=== PATIENT | male | born 1995 | race African-American/Black ===

== ENCOUNTER 2023-01-24 09:36 | Outpatient (CLI) | payer OTHER ==
--- NOTE | 2023-01-30 18:02 | MRI Report ---
PROCEDURE: LUMBAR SPINE WO INDICATIONS: LUMBAGO TECHNIQUE: Noncontrast sagittal T1 spin echo and T2 fast echo, sagittal STIR, axial T1 and T2 fast spin echo thr ough the lumbar spine. In cases with scoliosis, additional coronal T2 fast spin echo may be performe d. COMPARISON: This dictation was delayed, awaiting outside prior images, which have not arrived by the time of this dictation. FINDINGS: Image quality: Excellent. Alignment and Curvature: There is normal bony alignment. Bone Marrow: Marrow is of normal overall signal. No acute vertebral body compression fractures. Spinal Cord: Conus medullaris terminates at the L1-L2 level. Visualized cord demonstrates normal si gnal and size. Paraspinous Soft Tissues: No paravertebral masses. T12-L1: Normal in appearance. L1-L2: Normal in appearance. L2-L3: Normal in appearance. L3-L4: Mild to moderate disc bulge is seen. There is a mild central disc protrusion. Mild to modera te facet hypertrophy can be seen. Mild bilateral neural foraminal narrowing is seen. No central angela l narrowing is seen. L4-L5: Moderate loss of disc height and signal are seen. Moderate disc bulge is seen, with a cent ral/right disc protrusion. Mild facet hypertrophy is seen. There is at least moderate bilateral neur oforaminal narrowing seen. Compression is seen upon the exiting nerve roots. Mild central canal narr owing is seen. L5-S1: Moderate loss of disc height and signal are seen. Moderate disc bulge is seen, with a centra l disc protrusion. Note is made of an annular fissure posteriorly. Mild to moderate facet hypertrophy is seen. There is moderate to severe left-sided and at least moderate right-sided neuroforaminal karen rowing. Compression is seen upon the exiting nerve roots. Mild to moderate central canal narrowing i s seen. 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 Reviewed by: Pawel Davidson MD on 01/30/2023 5:01 PM [facility] Approved by: Pawel Davidson MD on 01/30/2023 5:01 PM K[facility] Station ID: [id number]
== END 2023-01-24 09:37 | disposition home or self-care (01) ==
LOC: DI 09:36
PROVIDERS: ATTEND General Practice
DX: M51.16 Intervertebral disc disorders with radiculopathy, lumbar region (principal); M47.26 Other spondylosis with radiculopathy, lumbar region; M48.061 Spinal stenosis, lumbar region without neurogenic claudication; M51.17 Intervertebral disc disorders with radiculopathy, lumbosacral region; M47.27 Other spondylosis with radiculopathy, lumbosacral region; M48.07 Spinal stenosis, lumbosacral region